=== PATIENT | male | born 1965 | race Caucasian/White ===

== ENCOUNTER → 2016-11-23 | Outpatient (CLI) | payer BC ==
[~2016-11-23] MED LIST: ALLEGRA180 MG PO; ALLER-EASE180 MG PO; AMLODIPINE BESY10 MG PO; ANUSOL-HC25 MG RECTAL; ASA5UEC PO; ASPIRIN EC325 M1 PO; AVELOX 400 MG400 MG PO; AZITHROMYCIN 2250 MG; BENICAR; BENICAR HCT 401 EAC1 PO; BP MED; CARDURA4 MG PO; CELEXA10 MG PO; CRESTOR10 MG PO; CRESTOR5 MG PO; DIOVAN HCT 1601 EAC1 PO; FLEXERIL PO; GLUCOPHAGE500 MG PO; IMDUR 30 MG TAB30 M1 PO; INVOKANA300 MG PO; Ipratr-Albuterol 0.5-3 Mg/3 Ml INH; JANUVIA100 MG PO; LOPRESSOR 50 MG50 M1 PO; LOPRESSOR100 M1 PO; METAMUCIL PAC1 UDPK1 PO; METAMUCIL283 GM PO; METFORMIN; METFORMIN HCL500 MG PO; MULTIVITAMINS PO; NISOLDIPINE40 MG PO; NITROGLYCERIN0.4 MG SL; NORCO 5-325 TA1 EACH PO; NORVASC PO; SULAR; SYMBICORT80 MCG/4.1 INH; TOPROL XL50 MG PO; ULTRAM 50MG TAB50 MG PO; VALSARTAN-HCTZ1 EAC2 PO; VITAMINC500 PO
== END ==
LOC: CAT 08:27
DX: N20.0 Calculus of kidney (principal); N13.30 Unspecified hydronephrosis; R10.9 Unspecified abdominal pain

== ENCOUNTER 2017-02-21 12:14 | Inpatient (IN) | payer BC ==
[~2017-02-21] VITALS: Ht 177.8 cm; Wt 102.1 kg
--- NOTE | ~2017-02-21 | EKG ---
[address] [place] [address] ELECTROCARDIOGRAM REPORT Name: JONATHAN DAVILA Room #: 209-P ADM IN M.R.#: [id number] Admission: 02/21/17 Attend Phys: Romario Moreno MD Discharge: Date of : 61 Report #: [id number] THIS REPORT FOR: //name// [facility] ED Test Date: 2017-02-21 Test Time: 12:59:11 Pat Name: JONATHAN DAVILA Department: Room: 209 Gender: M School Supervisor: madyson : 1965 Requested By: Levi Pineda Order Number: [id number] MD: Jc Mueller Measurements Intervals [place] Rate: 76 P: 79 CO: 166 QRS: -14 QRSD: 105 T: 15 QT: 440 QTc: 495 Interpretive Statements Sinus rhythm Ventricular trigeminy Minimal ST depression, lateral leads Borderline prolonged QT interval No previous ECG available for comparison Electronically Signed On 02-23-2017 7:34:57 CDT by Jc Mueller [email or web address] <ELECTRONICALLY SIGNED> By: Jc Mueller MD, [facility] 02/23/17 0734 1259 Jc Mueller MD, FACC /EPI
[2017-02-21 12:15] VITALS: BP 150/72
[2017-02-21 12:51] LABS: ABSOLUTE NEUTROPHILS 8.3 thou/uL (1.4-8.2); BASOPHILS 0.4 % (0.0-2.0); EOSINOPHILS 1.5 % (0.0-3.0); HEMATOCRIT 47.1 % (42.0-52.0); HEMOGLOBIN 15.9 gm/dL (14.0-18.0); LYMPHOCYTES 13.6 % (24.0-44.0); MCHC 33.8 g/dL (28.0-37.0); MCV 79.9 fL (80.0-100.0); MONOCYTES 6.1 % (1.0-8.0); PLATELET COUNT 216 thou/uL (150-400); POLYS 78.4 % (36.0-66.0); WBC 10.7 thou/uL (4.0-11.0)
[2017-02-21 12:52] LABS: URINE BILIRUBIN NEGATIVE (Negative); URINE BLOOD 3+ (Negative); URINE COLOR YELLOW; URINE GLUCOSE-RANDOM* 3+ (Negative); URINE KETONES 2+ (Negative); URINE NITRITE POSITIVE (Negative); URINE PROTEIN (DIPSTICK) 2+ (Negative); URINE UROBILINOGEN 0.2 E.U./dl (0.2-1.0)
[2017-02-21 12:55] LABS: CALCIUM 9.2 mg/dL (8.5-10.1); MANUAL DIFF NO
[2017-02-21 12:59] LABS: POTASSIUM 2.9 mmol/L (3.5-5.1)
[2017-02-21 13:01] LABS: SQUAMOUS None Seen /LPF (0-3); URINE WBC 0-5 Rare /HPF (0-5)
[2017-02-21 13:02] LABS: CASTS None Seen /LPF (None Seen); CRYSTALS None Seen /LPF (None Seen); URINE RBC >20 Many /HPF (0-2)
[2017-02-21 15:34] VITALS: BP 131/66
[2017-02-21 15:40] VITALS: BP 140/51
[2017-02-21 20:28] VITALS: BP 134/66
[2017-02-21 23:44] VITALS: BP 112/73
[2017-02-22 03:58] LABS: MCH 26.9 pg (26.0-34.0); MCHC 33.2 g/dL (28.0-37.0); MCV 81.1 fL (80.0-100.0); RBC 4.81 mil/uL (4.50-6.00); WBC 6.6 thou/uL (4.0-11.0)
[2017-02-22 04:03] LABS: CALCIUM 8.3 mg/dL (8.5-10.1); CREATININE 0.9 mg/dL (0.7-1.3); POTASSIUM 3.3 mmol/L (3.5-5.1)
[2017-02-22 04:19] LABS: HEMOGLOBIN 12.9 gm/dL (14.0-18.0)
[2017-02-22 04:23] VITALS: BP 155/80
[2017-02-22 08:40] VITALS: BP 145/75
[2017-02-22 13:41] VITALS: BP 118/97
[2017-02-22 15:14] VITALS: BP 108/62
[2017-02-22 20:42] VITALS: BP 124/71
[2017-02-23 04:28] VITALS: BP 137/73
[2017-02-23 08:05] VITALS: BP 153/93
[2017-02-23 11:15] VITALS: BP 117/68
[2017-02-23 11:25] VITALS: BP 117/68
[2017-02-23] MEDS ORDERED: FLOMAX0.4 MG PO (11:52)
[2017-02-23] MEDS ORDERED: KEFLEX500 MG PO (11:55)
[2017-02-23 12:41] VITALS: BP 117/68
[2017-02-23 12:42] VITALS: BP 117/68
== END 2017-02-23 14:02 | disposition home health service (06) | DRG 690 ==
LOC: ER 12:14 → EROBS 13:55 → 2N 13:55
PROVIDERS: Hospitalist; Nurse Practitioner
DX: N39.0 Urinary tract infection, site not specified (principal); N40.1 Benign prostatic hyperplasia with lower urinary tract symptoms; R33.8 Other retention of urine; I10 Essential (primary) hypertension; E11.9 Type 2 diabetes mellitus without complications; G47.33 Obstructive sleep apnea (adult) (pediatric); E78.5 Hyperlipidemia, unspecified; Z87.01 Personal history of pneumonia (recurrent); Z79.4 Long term (current) use of insulin; Z79.899 Other long term (current) drug therapy; Z79.82 Long term (current) use of aspirin; Z90.49 Acquired absence of other specified parts of digestive tract
CPT/HCPCS: 10081

== ENCOUNTER 2019-05-10 15:03 | Emergency (ER) | payer BC, OTHER ==
[~2019-05-10] VITALS: Ht 177.8 cm; Wt 104.8 kg
[~2019-05-10 15:03] MED LIST changes: +FLOMAX0.4 MG PO; +KEFLEX500 MG PO
[2019-05-10] MEDS ORDERED: OMEPRAZOLE40 MG PO (15:30)
[2019-05-10] MEDS ORDERED: VALSARTAN-HCTZ1 EAC2 PO (15:30)
[2019-05-10] MEDS ORDERED: FLOMAX0.4 MG PO (15:30)
[2019-05-10] MEDS ORDERED: JARDIANCE25 MG PO (15:30)
[2019-05-10] MEDS ORDERED: PROSCAR 5MG TABL5 MG PO (15:30)
[2019-05-10] MEDS ORDERED: TRULICITY0.75 MG/0. SUBQ (15:31)
[2019-05-10] MEDS ORDERED: LIPITOR40 MG PO (15:31)
[2019-05-10 17:10] LABS: ABSOLUTE NEUTROPHILS 5.1 thou/uL (1.4-8.2); BASOPHILS 0.9 % (0.0-2.0); EOSINOPHILS 1.2 % (0.0-3.0); HEMATOCRIT 47.8 % (42.0-52.0); HEMOGLOBIN 16.2 gm/dL (14.0-18.0); LYMPHOCYTES 17.6 % (24.0-44.0); MCH 27.5 pg (26.0-34.0); MCHC 33.9 g/dL (28.0-37.0); MCV 81.1 fL (80.0-100.0); MONOCYTES 7.7 % (1.0-8.0); PLATELET COUNT 184 thou/uL (150-400); POLYS 72.6 % (36.0-66.0); RBC 5.89 mil/uL (4.50-6.00); RDW 14.2 % (10.5-14.5)
[2019-05-10 17:19] LABS: ANION GAP 7 mmol/L (7-16); BUN 16 mg/dL (7-18); CALCIUM 9.1 mg/dL (8.5-10.1); CHLORIDE 104 mmol/L (98-107); CO2 30 mmol/L (21-32); CREATININE 0.8 mg/dL (0.7-1.3); GLUCOSE 172 mg/dL (74-106); POTASSIUM 3.5 mmol/L (3.5-5.1); SODIUM 141 mmol/L (136-145)
[2019-05-10 17:28] LABS: MAGNESIUM 2.2 mg/dL (1.8-2.4); TROPONIN-I <0.06 ng/mL (<0.06)
[2019-05-10 17:53] LABS: URINE BILIRUBIN NEGATIVE (Negative); URINE BLOOD NEGATIVE (Negative); URINE CLARITY CLEAR; URINE COLOR YELLOW; URINE GLUCOSE-RANDOM* 3+ (Negative); URINE KETONES NEGATIVE (Negative); URINE LEUKOCYTES-REFLEX NEGATIVE (Negative); URINE NITRITE-REFLEX NEGATIVE (Negative); URINE PROTEIN (DIPSTICK) NEGATIVE (Negative); URINE UROBILINOGEN 0.2 E.U./dl (0.2-1.0)
[2019-05-10 18:51] VITALS: BP 140/84
--- NOTE | 2019-05-13 07:53 | EKG ---
[place] [address] [facility] [place] [employer] [address] ELECTROCARDIOGRAM REPORT Name: JONATHAN DAVILA [id number] ������������������ Admission: 05/10/19 ������������������ Attend Phys: Discharge: 05/10/19 ������������������ Date of : 61 Report #: [id number] ����������������������������������������������������������������� [id number] THIS REPORT FOR: //name// [facility] ED Test Date: 2019-05-10 Test Time: 16:50:39 Pat Name: JONATHAN DAVILA Department: Room: Gender: Preliminary School Psychologist: RUTHY : 1965 Requested By: Nancy Reese Order Number: [id number] MD: Jc Mueller Measurements Intervals [place] Rate: 71 P: 57 AK: 160 QRS: -11 QRSD: 107 T: 1 QT: 415 QTc: 451 Interpretive Statements Sinus rhythm Normal tracing Compared to ECG 02/21/2017 12:59:11 Ventricular premature complex(es) no longer present ST (T wave) deviation no longer present Electronically Signed On 05-13-2019 7:53:17 CDT by Jc Mueller [email or web address] ��������������������������������������������� <ELECTRONICALLY SIGNED> ���������������������������������������� By: Jc Mueller MD, [facility] ��������������������������������������������� 05/13/19 [phone] Jc Mueller MD, [facility] /EPI
== END 2019-05-10 18:54 | disposition home or self-care (01) ==
LOC: ER 15:03
PROVIDERS: Emergency Medicine
DX: R20.2 Paresthesia of skin (principal); E11.9 Type 2 diabetes mellitus without complications; I10 Essential (primary) hypertension; G47.33 Obstructive sleep apnea (adult) (pediatric); E78.00 Pure hypercholesterolemia, unspecified; Z90.49 Acquired absence of other specified parts of digestive tract

== ENCOUNTER → 2019-06-19 | Outpatient (CLI) | payer BC, OTHER ==
[~2019-06-19] MED LIST changes: +JARDIANCE25 MG PO; +LIPITOR40 MG PO; +OMEPRAZOLE40 MG PO; +PROSCAR 5MG TABL5 MG PO; +TRULICITY0.75 MG/0. SUBQ
--- NOTE | 2019-06-19 11:10 | 2DMMODE ---
[facility] [employer] [place] [address] 2 D/M-MODE ECHOCARDIOGRAM Name: JONATHAN DAVILA Room #: REG [facility]#: [id number] Admission: 06/19/19 Attend Phys: Trae Matthews Discharge: Date of : 61 Date of Service: 06/19/19 1109 Report #: [id number] THIS REPORT FOR: //name// APPROVED REPORT Study performed: 06/19/2019 10:16:36 EXAM: Comprehensive 2D, Doppler, and color-flow Echocardiogram Patient Location: Out-Patient Status: routine BSA: 2.26 HR: 67 bpm Other Information Study Quality: Adequate Technically limited study due to obesity. Indications Dyspnea on exertion. Hx: DM, CAD, HTN, HLP, mental retardation. 2D Dimensions RVDd: 33.45 mm IVSd: 14.38 (7-11mm) LVOT Diam: 21.89 (18-24mm) LVDd: 49.75 mm PWd: 14.13 (7-11mm) Ascending Ao: 34.62 (22-36mm) LVDs: 32.07 (25-40mm) Aortic Root: 34.44 mm Volumes Left Atrial Volume (Systole) Single Plane 4CH: 46.86 mL Single Plane 2CH: 36.64 mL LA ESV Index: 21.00 mL/m2 Aortic Valve AoV Peak Davie.: 1.50 m/s AO Peak Gr.: 8.94 mmHg LVOT Max P.57 mmHg LVOT Max V: 1.07 m/s CLAUDIA Vmax: 2.69 cm2 Mitral Valve E/A Ratio: 0.9 MV Decel. Time: 177.07 ms MV E Max Davie.: 0.62 m/s [facility] [employer] [address] [place] [address] 2 D/M-MODE ECHOCARDIOGRAM Name: JONATHAN DAVILA Room #: [facility]#: [id number] Admission: 06/19/19 Attend Phys: Trae Matthews Discharge: Date of : 61 Date of Service: 06/19/19 1109 Report #: [id number] MV A Davie.: 0.72 m/s MV PHT: 51.35 ms IVRT: 89.97 ms Pulmonary Valve PV Peak Davie.: 1.35 m/s PV Peak Gr.: 7.24 mmHg Pulmonary Vein P Vein S: 0.48 m/s P Vein D: 0.40 m/s P Vein S/D Ratio: 1.20 Tricuspid Valve TR Peak Davie.: 2.32 m/s RAP Estimate: 5.00 mmHg TR Peak Gr.: 21.52 mmHg PA Pressure: 27.00 mmHg Left Ventricle The left ventricle is normal size. There is normal LV segmental wall motion. Moderate concentric left ventricular hypertrophy. Left ventricular systolic function is normal. LVEF is 65%. Mild diastolic dysfunction is present (impaired relaxation pattern). Right Ventricle The right ventricle is normal size. The right ventricular systolic function is normal. Atria The left atrium size is normal. The right atrium size is normal. Aortic Valve The aortic valve is normal in structure. No aortic regurgitation is present. There is no aortic valvular stenosis. Mitral Valve The mitral valve is normal in structure. Trace mitral regurgitation. Tricuspid Valve The tricuspid valve is normal in structure. Trace tricuspid regurgitation. Estimted PAP is 25-30mmHg. Pulmonic Valve The pulmonary valve is normal in structure. Trace pulmonic regurgitation. [facility] [address] [place] [address] 2 D/M-MODE ECHOCARDIOGRAM Name: JONATHAN DAVILA Room #: REG [facility]#: [id number] Admission: 06/19/19 Attend Phys: Trae Matthews Discharge: Date of : 61 Date of Service: 06/19/19 1109 Report #: [id number] [employer] The aortic root is normal in size. The ascending aorta is normal in size. IVC is normal in size and collapses >50% with inspiration. Pericardium There is no pericardial effusion. <Conclusion> The left ventricle is normal size. LVEF is 65%. The aortic valve is normal in structure. The mitral valve is normal in structure. Trace mitral regurgitation. The tricuspid valve is normal in structure. Trace tricuspid regurgitation. Estimted PAP is 25-30mmHg. The pulmonary valve is normal in structure. Trace pulmonic regurgitation. There is no pericardial effusion. <ELECTRONICALLY SIGNED> By: Trae Cedillo MD 06/19/19 1109 1109 1109 Trae Cedillo MD /INF
== END ==
LOC: CV 06:50
DX: I25.10 Atherosclerotic heart disease of native coronary artery without angina pectoris (principal); I11.9 Hypertensive heart disease without heart failure; E11.9 Type 2 diabetes mellitus without complications; E78.5 Hyperlipidemia, unspecified; F79 Unspecified intellectual disabilities; I73.9 Peripheral vascular disease, unspecified; I65.29 Occlusion and stenosis of unspecified carotid artery; Z79.899 Other long term (current) drug therapy

== ENCOUNTER → 2019-09-12 | Outpatient (CLI) | payer BC, OTHER ==
[~2019-09-12] VITALS: Ht 177.8 cm; Wt 106.1 kg
[~2019-09-12] MED LIST changes: +ALLEGRA ALLERG180 MG PO; +ISOSORBIDE DINI30 MG PO
--- NOTE | 2019-09-13 17:06 | PATH ---
[facility] [place] [address] PATHOLOGY RPT PROCEDURE Name: OG WOOD Room #: REG [facility].Benito.#: [id number] Admission: 09/12/19 Date of : 61 Discharge: Report #: [id number] Path Case #: [id number] [facility] Accession Number: [id number] . 01 Material submitted: . PART A: colon - POLYP AT DISTAL ASCENDING COLON. Modifiers: distal, ascending PART B: colon - RANDOM BIOPSIES PROXIMAL COLON R/O COLITIS. Modifiers: proximal PART C: colon - RANDOM BIOPSIES OF DISTAL COLON TO R/O COLITIS. Modifiers: distal PART D: colon - POLYP AT 30CM . 01 Clinical history: . Diarrhea . 02 Diagnosis: A. Polyp, at distal ascending colon, endoscopic biopsy: - Tubular adenoma. - Negative for high-grade dysplasia. . B. Large intestinal mucosa, proximal colon rule out colitis, endoscopic biopsy: - Focal mild acute cryptitis along with increased apoptosis (please see comment). - Negative for microscopic colitis. - Negative for dysplasia or malignancy. . C. Large intestine mucosa, distal colon rule out colitis, endoscopic biopsy: - Nonspecific reactive/hyperplastic changes along with focal acute cryptitis. Please see comment. - Negative for microscopic colitis. - Negative for dysplasia or malignancy. . D. Polyp, at 30 cm, endoscopic biopsy: - Tubular adenoma adjacent to a hyperplastic polyp. - Negative for high-grade dysplasia. . (IUV:speech and language assistant; 09/13/2019) MBR 09/13/2019 1201 Local . 02 Comment: Parts B and C: The differential diagnosis includes an acute self-limited episode of colitis, a resolving episode of colitis, medication/drug induced colitis, or changes due to bowel preparation. Please correlate clinically. [address] [address] PATHOLOGY RPT PROCEDURE Name: OG WOOD Room #: REG [facility] Leonel#: [id number] Admission: 09/12/19 Date of : 61 Discharge: Report #: [id number] Path Case #: [id number] (IUV:speech and language assistant; 09/13/2019) . 02 Electronically signed: . Nova Coe MD, Pathologist NPI- [id number] . 01 Gross description: . A. Received in formalin labeled "Og Wood, polyp at distal ascending," is a single segment of silva soft tissue measuring 0.4 cm in maximum dimension. The specimen is entirely submitted in cassette A1. . B. Received in formalin labeled "Og Wood, random BX's proximal colon to rule out colitis," are multiple segments of silva soft tissue measuring 2.0 x 0.6 x 0.1 cm in aggregate dimensions. The specimen is filtered and entirely submitted in cassette B1. . C. Received in formalin labeled "WoodOg, random BX's of distal colon," and additionally labeled on the requisition as "to rule out colitis," are multiple segments of silva soft tissue measuring 1.4 x 1.0 x 0.1 cm in aggregate dimensions. The specimen is filtered and entirely submitted in cassette C1. . D. Received in formalin labeled "Og Wood, polyp at 30 cm," is a single segment of silva soft tissue measuring 0.5 cm in maximum dimension. The specimen is entirely submitted in cassette D1. (TSD; 09/12/2019) TOB/TOB 09/12/2019 2139 Local . 02 Pathologist provided ICD-10: D12.2, K62.89, D12.6, K63.5 . 02 CPT . 320683, 948169, 785424, 580228 Specimen Comment: A courtesy copy of this report has been sent to [phone] Specimen Comment: [phone] Specimen Comment: Report sent to / DR DIAZ Performed at: [address], [place] [id number] MD Prieto Adames MD Phone: [phone] Performed at: [address] [id number] MD Nova Coe MD Phone: [phone]
--- NOTE | 2019-09-16 11:53 | P ---
[facility] [place] [address] [address] [place] [address] PROCEDURE REPORT Name: JONATHAN ADVILA Room #: REG [facility]#: [id number] Admission: 09/12/19 Attend Phys: Hosea Tapia MD Discharge: Date of : 61 Report #: [id number] THIS REPORT FOR: //name// CC: Hosea Baires DATE OF SERVICE: 09/12/2019 OUTPATIENT COLONOSCOPY BRIEF HISTORY: The patient is a 54-year-old male with family history of colon cancer. His mother had colon cancer in her 60s. It is not clear, but potentially two grandparents had colon cancer as well. The patient was found to have an adenoma in 2010 at the time of colonoscopy. In addition, the patient complains of chronic diarrhea. He also has rectal bleeding. He has had hemorrhoid surgery in the past. PREOPERATIVE DIAGNOSIS: History of colon polyps, family history of colon cancer, chronic diarrhea, rectal bleeding. POSTOPERATIVE DIAGNOSES: 1. Multiple colon polyps. 2. Pandiverticulosis coli. 3. Internal hemorrhoids. MEDICATIONS: Deep sedation with propofol per anesthesia. SPECIMENS: 1. Distal ascending colon polyp. 2. Random biopsies, proximal colon. 3. Random biopsies of distal colon. 4. Polyp at 30 cm. ESTIMATED BLOOD LOSS: 3 mL. PROCEDURE: Colonoscopy to cecum and terminal ileum with snare polypectomy and biopsy. FINDINGS: Prior to propofol sedation, procedure of colonoscopy discussed with the patient as well as potential risks and its complications. He indicates he understands and desires to proceed. DESCRIPTION OF PROCEDURE: With the patient in left lateral decubitus position, digital examination was completed, which revealed no abnormalities. Subsequently, the Olympus video colonoscope was introduced in the rectum, [facility] [address] [place] [address] PROCEDURE REPORT Name: JONATHAN DAVILA Room #: REG [facility].#: [id number] Admission: 09/12/19 Attend Phys: Hosea Tapia MD Discharge: Date of : 61 Report #: [id number] advanced under direct vision to the cecum. Done with minimal difficulty. The cecum was identified by the ileocecal valve and the appendiceal orifice. I was able to visualize the distal segment of terminal ileum, which was inspected and noted to be unremarkable. At that point, the scope was slowly withdrawn and careful circumferential views were obtained. Upon slow withdrawal of the scope, the prep was good. The mucosa was within normal limits, normal vascular pattern, normal light reflex. As we withdrew the scope, he was noted to have a polyp in the distal ascending colon, which was about 4 x 4 mm, removed by cold snare polypectomy. In view of his diarrhea, multiple random biopsies obtained in the proximal colon even though the colonic mucosa was unremarkable. In addition, he was noted to have diverticula throughout the colon. He essentially had pandiverticulosis. However, was greater in the left colon than the right colon. Again, the mucosa throughout the remainder of the colon was normal. However, due to his diarrhea, multiple biopsies obtained of the distal colon as well. At 30 cm, a 5 x 5 mm polyp was seen and removed by cold snare polypectomy. The scope was further withdrawal, no additional abnormalities were seen. Scope was withdrawn in the rectum, no abnormalities were seen. Upon retroflexion, no additional abnormalities were seen other than moderate internal hemorrhoids. Scope was withdrawn. The patient tolerated the procedure well. CONDITION OF THE PATIENT UPON DISCHARGE: Following procedure, the patient drowsy, aroused, conversant and will be discharged home when fully ambulatory. INSTRUCTIONS TO THE PATIENT AND FAMILY AT THE TIME OF DISCHARGE: We will follow up on the path of the polyps. In view of his family history and finding of polyp, suggest return in 5 years for followup colonoscopy. As far as his diarrhea, I do not see any inflammatory changes. There was no evidence of inflammatory bowel disease. He has multiple reasons to have diarrhea. We will follow up on biopsies and make further recommendations. We will also obtain laboratory studies included a celiac screen. At this time, we will treat him with Imodium as needed for the diarrhea. 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 He has had rectal bleeding. He has had surgeries for hemorrhoids in the past. He does have hemorrhoids present. At this time, we will treat him with hydrocortisone cream. In addition, he should return to see me in followup in the office. <ELECTRONICALLY SIGNED> By: Hosea Tapia MD 09/16/19 1153 0936 [id number] Hosea Tapia MD /nt
== END | disposition home or self-care (01) ==
LOC: GI 07:01
DX: K52.9 Noninfective gastroenteritis and colitis, unspecified (principal); K62.5 Hemorrhage of anus and rectum; D12.2 Benign neoplasm of ascending colon; D12.5 Benign neoplasm of sigmoid colon; K62.89 Other specified diseases of anus and rectum; K57.30 Diverticulosis of large intestine without perforation or abscess without bleeding; K64.8 Other hemorrhoids; K21.9 Gastro-esophageal reflux disease without esophagitis; I10 Essential (primary) hypertension; E78.5 Hyperlipidemia, unspecified; E11.9 Type 2 diabetes mellitus without complications; Z80.0 Family history of malignant neoplasm of digestive organs; Z86.010 Personal history of colon polyps; Z90.49 Acquired absence of other specified parts of digestive tract; Z98.890 Other specified postprocedural states; Z79.899 Other long term (current) drug therapy; Z79.82 Long term (current) use of aspirin
CPT/HCPCS: 62110; 62900

== ENCOUNTER 2019-10-14 14:14 | Emergency (ER) | payer OTHER ==
[~2019-10-14] VITALS: Ht 177.8 cm; Wt 106.1 kg
[2019-10-14] MEDS ORDERED: LANTUS SUBQ (14:55)
[2019-10-14 15:58] LABS: HEMOGLOBIN 16.3 gm/dL (14.0-18.0); MCH 27.4 pg (26.0-34.0); MCHC 33.1 g/dL (28.0-37.0); MCV 82.7 fL (80.0-100.0); RBC 5.93 mil/uL (4.50-6.00); RDW 14.1 % (10.5-14.5); WBC 8.8 thou/uL (4.0-11.0)
[2019-10-14] MEDS ORDERED: PROCTOCORT28.4 GM TOP (16:17)
[2019-10-14] MEDS ORDERED: LIDOCAINE 2%2 %/5 GM TOP (16:19)
[2019-10-14 16:27] VITALS: BP 146/80
== END 2019-10-14 16:28 | disposition home or self-care (01) ==
LOC: ER 14:14
PROVIDERS: Physician Assistant
DX: K64.4 Residual hemorrhoidal skin tags (principal); E11.9 Type 2 diabetes mellitus without complications; I10 Essential (primary) hypertension; G47.30 Sleep apnea, unspecified; K21.9 Gastro-esophageal reflux disease without esophagitis; E78.5 Hyperlipidemia, unspecified; Z90.49 Acquired absence of other specified parts of digestive tract